=== PATIENT | male | born 1955 | race Caucasian/White ===

== ENCOUNTER → 2019-09-06 09:13 | Outpatient (CLI) | payer MEDICARE ==
--- NOTE | 2019-09-09 09:07 | EC ---
PATIENT:DEMETRIUS GARZA DATE OF SERVICE: 09/06/19 SEX: M MEDICAL RECORD: [id number] DATE OF : 51 [facility] AGE OF PATIENT: 64 ADMISSION DATE: 09/06/19 REFERRING PHYSICIAN: INTERPRETING PHYSICIAN: PEDRO LEON MD ECHOCARDIOGRAM REPORT ECHO CHARGES 4 ECHO COMPLETE Date: 09/06/19 CLINICAL DIAGNOSIS: HTN/CAD ECHOCARDIOGRAPHIC MEASUREMENTS (adult normal given) AC root (d.<3.7cm) 3.1 cm LV Septum d (<1.2 cm> 1.5 cm Valve Excursion 2.0 cm LV Septum (systole) 1.7 cm Left Atria (s.<4.0cm> 4.6 cm LVPW d(<1.2cm) 1.7 cm RV (d.<2.3cm) 4.8 cm LVPW (sytole) 1.9 cm LV diastole(<5.6CM) 5.0 cm MV E-F(>70mm/sec) cm LV systole 3.1 cm LVOT Diameter 2.1 cm MV exc.(>10mm) 2.0 cm Est.ejection fraction (50-75%) % DOPPLER: LVIT cm/sec A 73.0 cm/sec E 95.0 cm/sec LA cm/sec RVSP 37 mmHg LVOT 111 cm/sec AOP1/2T m/s Asc. Ao 158 cm/sec RVOT 75 cm/sec RA cm/sec PA 119 cm/sec AV Gradient Peak 9.92 mmHg AV Mean 5.18 mmHg AV Area 2.4 cm MV Gradient Peak 5.45 mmHg MV Mean 1.60 mmHg MV Area cm COMMENTS: Greeting Card Maker: 2 BOOKER WANG Building Appraiser: 3 Dr. Pineda TAPE# PACS Pericardial Effusion N DATE OF SERVICE: Adequate 2D, color flow imaging, spectral Doppler, and M-Mode LVH is present. LV internal dimensions are normal. Wall motion is normal. EF is greater than or equal to 55%. Aortic valve is tricuspid. No evidence of stenosis by Doppler interrogation. Mild AI with color flow imaging. Left atrium is dilated at 4.6 cm. Mitral valve shows no prolapse. Mild MR. Right-sided chambers are grossly normal. Trace TR. ECHOCARDIOGRAM REPORT [id number] DEMETRIUS GARZA TRANSINT:[id number] Voice Confirmation ID: [id number] DOCUMENT ID: [id number] PEDRO LEON MD at 0907 CC: [id number] DICTATION DATE: 09/08/19 1320 GYM ATTENDANT: 09/08/19 1407 DEP CLI 09/06/19 [place] [id number] [place] [id number]
== END | disposition home or self-care (01) ==
LOC: D.HCCECHO 09:13
PROVIDERS: ATTEND Internal Medicine Interventional Cardiology
DX: I10 Essential (primary) hypertension (principal)